=== PATIENT | male | born 1975 | race Caucasian/White ===

== ENCOUNTER → 2016-04-14 | Outpatient (CLI) | payer MEDICAID ==
--- NOTE | 2016-04-14 08:41 | MR ---
EXAMINATION TYPE: MR knee RT wo con DATE OF EXAM: 04/14/2016 8:14 AM COMPARISON: NONE HISTORY: Pain, effusion, and medial meniscal derangements per order. Right knee pain and locking sens ation for 6 to 7 months per patient. TECHNIQUE: Multiplanar, multisequence images of the knee is performed without IV contrast. FINDINGS: MEDIAL MENISCUS: Anterior and posterior horns are intact without tear. LATERAL MENISCUS: Anterior and posterior horns are intact without tear. CRUCIATE LIGAMENTS: The anterior and posterior cruciate ligaments are intact and unremarkable. COLLATERAL LIGAMENTS: The medial collateral ligament and lateral collateral ligament complex are inta ct and unremarkable. EXTENSOR MECHANISM: Visualized quadriceps and patellar tendons are intact. EFFUSION: No significant suprapatellar joint effusion. POPLITEAL CYST: No popliteal/bal cyst. Small cyst probable bursal surface posterior to the distal lateral femoral condyle is noted on sagittal image 19. TRICOMPARTMENT SPACES: Tricompartment joint spaces are fairly well-maintained. There is no significan t spurring identified. CARTILAGE: Tricompartment articular cartilage is maintained. There is no significant chondromalacia p atella present. BONE MARROW SIGNAL: No focal abnormal marrow signal is appreciated. OTHER: No additional significant abnormality is appreciated. IMPRESSION: No meniscal or ligamentous tear is seen. No significant finding is identified to account for patient's symptoms.
== END | disposition home or self-care (01) ==
LOC: RADMRIMAIN 07:39
PROVIDERS: ATTEND Orthopaedic Surgery Sports Medicine
DX: M25.461 Effusion, right knee (principal); M25.561 Pain in right knee; M23.331 Other meniscus derangements, other medial meniscus, right knee

== ENCOUNTER → 2017-07-12 | Outpatient (CLI) | payer MEDICAID ==
--- NOTE | 2017-07-12 09:52 | CT ---
EXAMINATION TYPE: CT sinus wo con DATE OF EXAM: 07/12/2017 COMPARISON: Prior sinus CT May 26, 2008 HISTORY: chronic sinusitis and left-sided facial pain per order. CT DLP: 628 mGycm. Automated Exposure Control for Dose Reduction was Utilized. TECHNIQUE: CT scan of the sinuses is performed without contrast, axial images are obtained, coronal r eformatted images are also reviewed. FINDINGS: There is mild mucosal thickening with few tiny mucous retention cysts or polyps in the infe rior maxillary sinuses bilaterally. There is mild to moderate mucosal thickening involving the sphen oid sinuses bilaterally on current study. There is mild mucosal thickening involving ethmoid sinuses bilaterally. There is nonformed right frontal sinus. No suspicious opacification or air-fluid levels is seen. The surgically treated ostiomeatal complex is patent bilaterally on the coronal images. Nasa l septum remains deviated to left of midline. Visualized portion of mastoid air cells show no abnormal opacification. The globes are intact bilate rally. Visualized portion of brain parenchyma is unremarkable. IMPRESSION: Chronic paranasal sinus disease as detailed above. No acute sinus disease identified curr ently.
== END | disposition home or self-care (01) ==
LOC: RADCTMAIN 08:55
PROVIDERS: ATTEND Otolaryngology
DX: J34.89 Other specified disorders of nose and nasal sinuses (principal); J32.9 Chronic sinusitis, unspecified
CPT/HCPCS: 70486

== ENCOUNTER → 2017-10-11 | Outpatient (CLI) | payer MEDICAID ==
--- NOTE | 2017-10-11 16:53 | CONS ---
CONSULTATION DATE OF SERVICE: 10/11/2017 A 41-year-old gentleman has been evaluated in the sleep center for possible obstructive sleep apnea-hypopnea syndrome. HISTORY OF PRESENT ILLNESS/SLEEP-WAKE EVALUATION: Patient usual sleep schedule from 10 p.m. to 5 a.m. on working days and to 6:00 a.m. on weekends. Usually no problems with falling asleep, although he has TV in bedroom. He sleeps by himself with snoring and grinding teeth, episodes of panic attack, heartburn, and sweating. The patient wakes up from sleep about 5 times with some episodes of nocturia also. No history of hypnagogic hallucinations, sleep paralysis or cataplexy. [place] Sleepiness Scale is 3. PAST MEDICAL HISTORY: Positive for anxiety, acid reflux, back problems. PAST SURGICAL HISTORY: Sinus surgery. Hernia repair surgery. MEDICATIONS: Singular, Motrin, Prilosec, Xanax. SOCIAL HISTORY: Negative for smoking. Alcohol consumption occasional. FAMILY HISTORY: Heart problems, asthma, snoring, acid reflux. REVIEW OF SYSTEMS: Multiple awakenings from sleep. PHYSICAL EXAM: GENERAL A 41-year-old gentleman without distress. VITAL SIGNS BP 128/81, HR 79, RR 16, height 5 feet 8 inches, weight 195.8, BMI 29.6, temperature 98.5, oxygen saturation room air 98%. HEENT PERRLA, EOMI, evaluation of oropharynx showed low position of soft palate. Slight hypertrophy of tonsils. Slight restriction of nasal breathing. Slight asymmetric nose, possible nasal septum deviation. NECK Supple, no JVD. Thyroid is not palpable. LUNGS Clear to percussion and to auscultation. Good air exchange. No wheezing or rhonchi. HEART S1, S2 regular. No murmurs, gallops, or rubs. ABDOMEN Slightly obese, soft and nontender. Bowel sounds are present. No organomegaly appreciated. EXTREMITIES No clubbing or cyanosis. MRI MANAGER Awake, alert, and oriented X3. Cranial nerves 2 to 7 intact. There is no fasciculation or atrophy. noted. No focal deficits observed. IMPRESSION: 1. Snoring, multiple awakenings from sleep, low position of soft palate, obstructive sleep apnea-hypopnea syndrome. 2. Acid reflux. 3. Anxiety. 4. Back problems. 5. Status post sinus surgery. 6. Status post hernia repair surgery. PLAN: 1. Polysomnography for evaluation of patient's breathing during sleep. 2. CPAP/BiPAP titration if sleep study confirms obstructive sleep apnea-hypopnea syndrome. 3. Preferable position during sleep on the side. 4. No driving if patient feels any sleepiness. 5. I will see patient for follow up visit to explain results of testing and following plan. Thank you very much for referring this patient for consultation. Sincerely, Kurt Henry MD, PhD, FAASM Diplomat of [employer] Compounder of [facility] [place] MMODL / IJN: [id number] /
== END | disposition home or self-care (01) ==
LOC: SLEEP 15:23
PROVIDERS: ATTEND Internal Medicine
DX: G47.33 Obstructive sleep apnea (adult) (pediatric) (principal); K21.9 Gastro-esophageal reflux disease without esophagitis; F41.9 Anxiety disorder, unspecified; M54.9 Dorsalgia, unspecified; Z79.1 Long term (current) use of non-steroidal anti-inflammatories (NSAID); Z79.899 Other long term (current) drug therapy; Z98.890 Other specified postprocedural states
CPT/HCPCS: 99211

== ENCOUNTER → 2018-05-16 | Outpatient (CLI) | payer MEDICAID ==
[2018-05-16 16:41] LABS: HCT 47.1 % (39.0-53.0); HGB 16.1 gm/dL (13.0-17.5); MCH 30.8 pg (25.0-35.0); MCHC 34.1 g/dL (31.0-37.0); MCV 90.3 fL (80.0-100.0); Mean Platelet Volume 6.3; Platelet Count 355 k/uL (150-450); RBC 5.22 m/uL (4.30-5.90); RDW 12.1 % (11.5-15.5); WBC 10.4 k/uL (3.8-10.6)
[2018-05-16 23:02] LABS: Thyroid Peroxidase Antibodies 36.8 U/mL (0.0-60.0)
== END | disposition home or self-care (01) ==
LOC: LABWHC1 16:05
PROVIDERS: ATTEND Internal Medicine Endocrinology, Diabetes & Metabolism
DX: R53.83 Other fatigue (principal)
CPT/HCPCS: 36415; 82533; 82607; 84146; 84403; 85027; 86376

== ENCOUNTER → 2020-03-17 | Outpatient (CLI) | payer MEDICAID | END | disposition home or self-care (01) | LOC: LABWHC1 12:09 | PROVIDERS: ATTEND Emergency Medicine | DX: Z20.828 Contact with and (suspected) exposure to other viral communicable diseases (principal) | CPT/HCPCS: U0003; C9803 ==

== ENCOUNTER → 2020-08-04 | Outpatient (CLI) | payer MEDICAID ==
--- NOTE | 2020-08-04 14:53 | XR ---
EXAMINATION TYPE: XR chest 2V DATE OF EXAM: 08/04/2020 COMPARISON: None INDICATION: Chest pain TECHNIQUE: Frontal and lateral views of the chest are obtained. FINDINGS: The heart size is normal. The pulmonary vasculature is normal. The lungs are clear. IMPRESSION: 1. No acute pulmonary process.
== END | disposition home or self-care (01) ==
LOC: RADXRMAIN 14:16
PROVIDERS: ATTEND Physician Assistant Medical
DX: R07.9 Chest pain, unspecified (principal)
CPT/HCPCS: 71046

== ENCOUNTER → 2020-08-20 | Outpatient (CLI) | payer MEDICAID ==
--- NOTE | 2020-08-20 10:01 | ECHOF ---
Referral Reason:R07.9 chest pain MEASUREMENTS -------- HEIGHT: 172.7 cm WEIGHT: 90.7 kg BP: RVIDd: 3.0 cm (< 3.3) IVSd: 1.6 cm (0.6 - 1.1) LVIDd: 3.5 cm (3.9 - 5.3) LVPWd: 1.4 cm (0.6 - 1.1) IVSs: 1.7 cm LVIDs: 2.4 cm LVPWs: 1.7 cm LAESV Index (A-L): 13.74 ml/m Ao Diam: 3.2 cm (2.0 - 3.7) AV Cusp: 2.4 cm (1.5 - 2.6) MV EXCURSION: 13.117 mm (> 18.000) MV EF SLOPE: 80 mm/s (70 - 150) EPSS: 0.7 cm MV E Davis: 0.66 m/s MV DecT: 183 ms MV A Davis: 0.55 m/s MV E/A Ratio: 1.21 RAP: 5.00 mmHg RVSP: 32.30 mmHg FINDINGS -------- Sinus rhythm. This was a technically adequate study. The left ventricular size is normal. There is moderate concentric left ventricular hypertrophy. O verall left ventricular systolic function is normal with, an EF between 55 - 60 %. The diastolic fi lling pattern is normal for the age of the patient 11.44. The right ventricle is normal in size. Normal LA size by volume 22+/-6 ml/m2. The right atrial size is normal. Interatrial and interventricular septum intact. The aortic valve is trileaflet and appears structurally normal. There is no evidence of aortic regu rgitation. There is no evidence of aortic stenosis. There is trace to mild mitral regurgitation. Mild tricuspid regurgitation present. There is no evidence of pulmonary hypertension. The right v entricular systolic pressure, as measured by Doppler, is 32.30mmHg. There is no pulmonic regurgitation present. The aortic root size is normal. Normal inferior vena cava with normal inspiratory collapse consistent with estimated right atrial pre ssure of 5 mmHg. There is no pericardial effusion. CONCLUSIONS -------- 1. The left ventricular size is normal. 2. There is moderate concentric left ventricular hypertrophy. 3. Overall left ventricular systolic function is normal with, an EF between 55 - 60 %. 4. The diastolic filling pattern is normal for the age of the patient 11.44 5. There is trace to mild mitral regurgitation. 6. Mild tricuspid regurgitation present. REGULATORY COMPLIANCE ENGINEER: Viji Kirby RDCS
--- NOTE | 2020-08-20 12:23 | P.STRESS ---
- Stress Test Note Stress Test Results/Findings: Exam Performed: NM stress lexiscan cardiolite Exam Date: 08/20/20 Reason for Exam: CP Height: 5 ft 8 in Weight: 91 kg Protocol: LEXISCAN CARDIOLITE Stage: NA Duration of Exercise: NA Resting Heart Rate: 86 Resting Blood Pressure: 131/95 Maximum Achieved Heart Rate: 120 Maximum Achieved Blood Pressure: 162/99 85% PMHR: 151 100% PMHR: 178 METS: NA Technologist Comment: Stress Test Results/Findings: This is a 44-year-old gentleman with history of COPD being evaluated for symptoms of chest pain. Stress data: Baseline EKG showed sinus rhythm with normal IN and QRS duration. Blood pressure at rest is 05[birth year]/1994 at pulse rate of 86. A standard dose of Lexiscan was infused. EKGs taken during the infusion did not reveal any significant changes from the baseline. Final impression #1. Negative Lexiscan stress test #2. A report on the nuclear images to be given by the radiologist
--- NOTE | 2020-08-20 13:03 | NM ---
EXAMINATION TYPE: NM stress lexiscan cardiolite DATE OF EXAM: 08/20/2020 COMPARISON: Previous 01/17/2012 HISTORY: Chest pain, R07.9 TECHNIQUE: After the intravenous administration of 9.6 mCi Tc 99m Sestamibi - Cardiolite resting SPE CT images acquired 45 minutes post injection. The patient received 0.4mg Lexiscan, 24.8 mCi Tc 99m Sestamibi - Stress images obtained [address] injection FINDINGS: Review of stress and rest SPECT images demonstrates no distinct perfusion abnormality. Gated analysi s shows normal wall motion with an estimated left ventricular ejection fraction of 59 %. IMPRESSION: No scintigraphic evidence for reversible ischemia. Stable exam, normal change.
== END | disposition home or self-care (01) ==
LOC: RADNMMAIN 08:14
PROVIDERS: ATTEND Family Medicine
DX: I08.1 Rheumatic disorders of both mitral and tricuspid valves (principal); R07.9 Chest pain, unspecified
CPT/HCPCS: 93017; 93306; 78452; A9500

== ENCOUNTER → 2022-01-04 | Outpatient (CLI) | payer MEDICAID ==
--- NOTE | 2022-01-04 09:02 | CT ---
EXAMINATION TYPE: CT soft tissue neck w con CT DLP: 690 mGycm, Automated exposure control for dose reduction was used. DATE OF EXAM: 01/04/2022 8:22 AM COMPARISON: None. CLINICAL INDICATION:Male, 46 years old with history of R22.1 LOCALIZED SWELLING, MASS AND LUMP, NECK; PHH, Swelling on left side near tonsils TECHNIQUE: Standard enhanced CT of the neck following intravenous administration of 66 cc of Isovue 3 00. Axial sections with coronal and sagittal reformats were obtained. FINDINGS: Brain: Visualized portions are grossly unremarkable. Orbits: Unremarkable Sinuses: Mild mucosal thickening of the bilateral maxillary sinuses. Suprahyoid Neck: The oropharynx, oral cavity and retropharyngeal spaces are clear and symmetric. The nasopharynx is unremarkable. Minimal asymmetric prominence of the left palatine tonsil compared to th e right. The surrounding parapharyngeal fat is clear. No fluid collection identified. Infrahyoid Neck: The larynx, hypopharynx, and supraglottic area are clear and symmetric. Parotid Glands: Unremarkable. Submandibular Glands: Unremarkable. Musculoskeletal: No acute osseous pathology. Lymph nodes: Multiple nonenlarged lymph nodes are seen along both anterior chains of the neck. Vascular structures: Visualized major arteries are patent without evidence of aneurysm. Thoracic Inlet/airway: Airway is patent. The lung apices are clear. Soft tissues/Thyroid: Thyroid and remainder of the soft tissues are unremarkable. Other: none. IMPRESSION Minimal asymmetric prominence of the left palatine tonsil compared to the right without surrounding i nflammatory changes. No concerning lymphadenopathy. Direct visualization is recommended.
== END | disposition home or self-care (01) ==
LOC: RADCTMAIN 07:33
PROVIDERS: ATTEND Otolaryngology
DX: R22.1 Localized swelling, mass and lump, neck (principal)
CPT/HCPCS: 70491; Q9967

== ENCOUNTER → 2022-01-26 | Outpatient (CLI) | payer MEDICAID ==
[2022-01-26 16:06] LABS: Basophils # (A) 0.09 X 10*3/uL (0.00-0.10); Basophils % (A) 1.5 %; Eosinophils # (A) 0.11 X 10*3/uL (0.04-0.35); Eosinophils % (A) 1.8 %; HCT 47.8 % (39.6-50.0); HGB 16.5 g/dL (13.0-17.0); Immature Grans, Automated 0.5 %; Lymphocytes # (A) 1.87 X 10*3/uL (0.90-5.00); Lymphocytes % (A) 30.5 %; MCH 30.7 pg (27.0-32.0); MCHC 34.5 g/dL (32.0-37.0); Mean Platelet Volume 10.1 fL (9.5-12.2); Monocytes # (A) 0.62 X 10*3/uL (0.20-1.00); Monocytes % (A) 10.1 %; NRBC Per 100 WBC 0 /100 WBCS (0.0-0.0); Neutrophils # (A) 3.41 X 10*3/uL (1.80-7.70); Neutrophils % (A) 55.6 %; Platelet Count 338 X 10*3/uL (140-440); RBC 5.37 X 10*6/uL (4.40-5.60); RDW 11.9 % (11.5-14.5); WBC 6.13 X 10*3/uL (4.50-10.00)
[2022-01-26 16:16] LABS: T4, Free (Free Thyroxine) 1.21 ng/dL (0.800-1.800)
== END | disposition home or self-care (01) ==
LOC: LABWHC1 09:25
PROVIDERS: ATTEND Otolaryngology
DX: R53.83 Other fatigue (principal)
CPT/HCPCS: 36415; 84439; 84443; 85025

== ENCOUNTER → 2022-11-30 | Outpatient (CLI) | payer MEDICAID ==
[2022-11-30 12:25] LABS: HCT 47.2 % (39.6-50.0); HGB 15.9 d/dL (13.0-17.0); MCH 29.9 pg (27.0-32.0); MCHC 33.7 d/dL (32.0-37.0); MCV 88.9 FL (80.0-97.0); Mean Platelet Volume 10.6 FL (9.5-12.2); NRBC Per 100 WBC 0 X 10*3/uL (0.00-0.01); Platelet Count 322 X 10*3/uL (140-440); RBC 5.31 X 10*6/uL (4.40-5.60); WBC 6.39 X 10*3/uL (4.50-10.00)
[2022-11-30 13:20] LABS: ALT 31 U/L (10-49); AST 18 U/L (14-35); Albumin 4.5 d/dL (3.8-4.9); Alkaline Phosphatase 84 U/L (41-126); BUN/Creat Ratio 11.73 Ratio (12.00-20.00); Blood Urea Nitrogen 12.9 mg/dL (9.0-27.0); Calcium 9.4 mg/dL (8.7-10.3); Carbon Dioxide 23.5 mmol/L (21.6-31.8); Chloride 107 mmol/L (96-109); Chol/HDL Ratio 5.76 Ratio; Globulin 2.5 d/dL (1.6-3.3); Glucose 109 mg/dL (70-110); Potassium 4.1 mmol/L (3.5-5.5); Sodium 142 mmol/L (135-145); Total Bilirubin 0.2 mg/dL (0.3-1.2)
== END | disposition home or self-care (01) ==
LOC: LABWHC1 07:32
PROVIDERS: ATTEND Family Medicine
DX: Z00.00 Encounter for general adult medical examination without abnormal findings (principal)
CPT/HCPCS: 36415; 80053; 80061; 83036; 84443; 85027

== ENCOUNTER → 2023-04-25 | Outpatient (CLI) | payer MEDICAID ==
--- NOTE | 2023-04-29 06:15 | MR ---
EXAMINATION TYPE: MR shoulder LT wo con DATE OF EXAM: 04/25/2023 COMPARISON: Outside left shoulder x-ray April 25, 2023 HISTORY: Left shoulder pain with difficulty raising arm x3 months TECHNIQUE: Multiplanar, multisequence imaging of the left shoulder is performed without contrast. FINDINGS: Rotator Cuff: Increased signal in the infraspinatus and to greater degree the supraspinatus tendon. S ubscapularis tendon intact. Rotator cuff muscle bulk preserved. Acromioclavicular Joint: Mild to moderate narrowing greatest along posterior aspect. No significant s purring. Glenohumeral Joint: No significant spurring. Small to tiny joint effusion. Labrum: The labrum appears grossly intact given limitation of non-arthrogram study. Biceps Tendon: The long head of biceps is in normal location within bicipital groove. Bone marrow signal: No focal abnormal marrow signal is appreciated. Other: No additional significant abnormality is appreciated. IMPRESSION: Some tendinosis of the infraspinatus and supraspinatus tendons. No significant rotator cu ff or labral tear seen.
== END | disposition home or self-care (01) ==
LOC: RADMRIMAIN 21:45
PROVIDERS: ATTEND Orthopaedic Surgery
DX: M67.814 Other specified disorders of tendon, left shoulder (principal)

== ENCOUNTER → 2024-01-11 | Outpatient (CLI) | payer MEDICAID ==
[2024-01-11 21:29] LABS: Alternaria alternata IgE <0.10 kU/L; Aspergillus fumagatus IgE <0.10 kU/L; Birch IgE <0.10 kU/L; Cat Epith & Dander IgE <0.10 kU/L; Cladosporian herbarum IgE <0.10 kU/L; Cockroach IgE <0.10 kU/L; Dermato. farinae IgE <0.10 kU/L; Dog Dander IgE <0.10 kU/L; Elm IgE <0.10 kU/L; Maple (Box Elder) IgE <0.10 kU/L; Oak IgE <0.10 kU/L; Ragweed,Common IgE <0.10 kU/L; Red Top (Bentgrass) IgE <0.10 kU/L
== END | disposition home or self-care (01) ==
LOC: LABWHC1 15:45
PROVIDERS: ATTEND Internal Medicine Critical Care Medicine
CPT/HCPCS: 36415; 82785; 85008; 86003

== ENCOUNTER → 2024-03-04 | Outpatient (CLI) | payer MEDICAID ==
--- NOTE | 2024-03-04 19:43 | CT ---
EXAMINATION TYPE: CT angio head neck DATE OF EXAM: 03/04/2024 5:46 PM COMPARISON: . CLINICAL INDICATION: Male, 48 years old with history of Z12.9 ENC FOR SCR FOR MALIGNANT NEOPLASM, lef t side selling and ear pain TECHNIQUE: Axially acquired helical CT angiogram of the head and neck was obtained with contrast. Axi al images are supplemented with 3D reconstructions and MIP images which were post-processed at an in dependent workstation. NASCET criteria used. Contrast used:100ml mL of Isovue 370 with IV Contrast, Oral contrast used: None. CT DLP: 522.7 mGycm, Automated exposure control for dose reduction was used. FINDINGS: CTA HEAD: No evidence of acute intracranial hemorrhage, mass effect, or midline shift. The ventricles, sulci, a nd cisterns are unremarkable. Vertebral arteries: The vertebral arteries are patent. Vertebral artery dominance: Codominant Basilar artery: The basilar artery is intact. The basilar artery bifurcation is normal. Internal Carotid arteries: The cervical, petrous, cavernous and supraclinoid segments are normal. LICHA: Patent with no evidence of aneurysm. ACOM: Present without evidence of aneurysm. MCA: Patent with no evidence of aneurysm. CHEESE PANCAKE ROLLER: Patent with no evidence of aneurysm. PCOM: Hypoplastic bilaterally. Dural sinuses: Patent. CTA NECK: Right Carotid System: The common carotid artery and external carotid artery are patent. The carotid bifurcation demonstrate s no evidence of hemodynamically significant stenosis. The remaining portions of the internal carotid artery demonstrate normal size without significant narrowing. Left Carotid System: The common carotid artery and external carotid artery are patent. The carotid bifurcation demonstrate s no evidence of hemodynamically significant stenosis. The remaining portions of the internal carotid artery demonstrate normal size without significant narrowing. Vertebral arteries are patent without evidence hemodynamically significant stenosis. There is a three-vessel aortic arch. The origins of the great vessels are patent. No evidence of hemo dynamically significant stenosis. No enlarged lymph nodes in the left neck. No organizing fluid collection or mass identified. The paro tid glands are relatively symmetric. The remainder of the soft tissues are relatively symmetric. IMPRESSION: 1. No finding to correlate with patient's symptoms. A facial soft tissues are relatively symmetric. No organizing fluid collection or mass. No lymphadenopathy. 2. No evidence of dissection of the cervical internal carotid arteries or vertebral arteries. 3. No any evidence of significant stenosis at the carotid bifurcations. 4. No evidence of intracranial high-grade stenosis or intracranial aneurysm. [facility], , 03/04/2024 7:40 PM
== END | disposition home or self-care (01) ==
LOC: RADCTMAIN 03-01 10:58
PROVIDERS: ATTEND Family Medicine
DX: Z12.9 Encounter for screening for malignant neoplasm, site unspecified (principal)
CPT/HCPCS: 70496; 70498; Q9967

== ENCOUNTER → 2024-03-15 | Outpatient (CLI) | payer MEDICAID ==
--- NOTE | 2024-03-15 16:52 | CT ---
EXAMINATION TYPE: CT sinus wo con DATE OF EXAM: 03/15/2024 4:45 PM COMPARISON: 07/12/2017. CLINICAL INDICATION: Male, 48 years old with history of J36 PERITONSILLAR ABSCESS K11.20 SIALOADENITI S; , Acute maxillary sinusitis. TECHNIQUE: Multiple thin axial images were obtained through the paranasal sinuses without the use of IV contrast. Additional coronal and sagittal reformatted images were submitted for evaluation. Contrast used: none Oral contrast used: none CT DLP: 388 mGycm, Automated exposure control for dose reduction was used. FINDINGS: Frontal sinuses: Hypoplastic left frontal sinus and aplastic right frontal sinus.. Frontal Recess: Cl ear Maxillary Sinuses: Mild mucosal thickening bilaterally. The ostiomeatal units are felt to have postsu rgical change. Maxillary Infundibula([facility]): Clear, No Benjamin cells identified. Ethmoid sinuses: Normally developed with mild mucosal thickening. Ethmoidal notch: Protected and abut ting the lateral lamina. Sphenoid sinuses: Normally developed with mild mucosal thickening. There is sellar sphenoid sinus pne umatization without evidence of dehiscence. No dehiscence of carotid canal. No evidence of optic ner ve dehiscence within the sphenoid sinus. No evidence of Onodi cells. Sphenoethmoidal recesses: Clear . Nasal septum: Slightly deviated leftward on the anterior superior portion. Polyp-like lesion just ant erior to the right middle turbinate Nasal Turbinates: Within normal limits. Mastoid air cells & middle ears: The air cells are clear. The middle ears are grossly unremarkable. Modified Soft tissues & Brain: Partially seen without gross abnormality. Globes are intact. Other: Cribriform plate demonstrates symmetric cribriform plate. No evidence of bony dehiscence of skull ba se. Lamina papyracea is intact without evidence of remote orbital fracture or orbital prolapse into the e thmoid sinus. IMPRESSION: 1. Mild paranasal sinus disease. 2. The ostiomeatal units have postsurgical morphology and are patent, the frontonasal and sphenoethmo idal recesses are clear. 3. Polyp-like lesion just anterior to the right middle turbinate [facility], , 03/15/2024 4:49 PM
--- NOTE | 2024-03-15 17:09 | CT ---
EXAMINATION TYPE: CT soft tissue neck w con DATE OF EXAM: 03/15/2024 4:54 PM COMPARISON: Same day CT sinuses. CLINICAL INDICATION: Male, 48 years old with history of J36 PERITONSILLAR ABSCESS K11.20 SIALOADENITI S; PHH, Peritonsillar abscess. Sialoadenitis. TECHNIQUE: Standard enhanced CT of the neck. Axial sections with coronal and sagittal reformats were obtained. Contrast used:100 ml mL of Isovue 300 with IV Contrast, (None if empty) Oral contrast used: (None if empty) CT DLP: 803 mGycm, Automated exposure control for dose reduction was used. FINDINGS: Brain: Visualized portions are grossly unremarkable. Orbits: Unremarkable Sinuses: Mild paranasal sinus disease. Spaces of the neck: Clear and symmetric. No organizing fluid collection. Mild enlargement of the osage leona tonsils. The submandibular parotid glands appear within normal limits. Musculoskeletal: No acute osseous pathology. Lymph nodes: Multiple nonenlarged lymph nodes are seen along both anterior chains of the neck. Vascular structures: Visualized major arteries are patent without evidence of aneurysm. Thoracic Inlet/airway: Airway is patent. The lung apices are clear. Soft tissues/Thyroid: Thyroid and remainder of the soft tissues are unremarkable. Other: none. IMPRESSION: 1. No evidence for peritonsillar abscess, no lymphadenopathy. 2. No CT evidence for sialoadenitis. [facility], , 03/15/2024 5:07 PM
== END | disposition home or self-care (01) ==
LOC: RADCTMAIN 16:00
PROVIDERS: ATTEND Family Medicine
DX: J36 Peritonsillar abscess (principal); J34.89 Other specified disorders of nose and nasal sinuses; K11.20 Sialoadenitis, unspecified; J35.1 Hypertrophy of tonsils; R51.9 Headache, unspecified; J01.00 Acute maxillary sinusitis, unspecified
CPT/HCPCS: 70491; 70486; Q9967

== ENCOUNTER → 2024-08-21 | Outpatient (CLI) | payer MEDICAID ==
[2024-08-22 01:51] LABS: HCT 49.6 % (39.6-50.0); HGB 16.7 g/dL (13.0-17.0); MCH 29.9 pg (27.0-32.0); MCHC 33.7 g/dL (32.0-37.0); MCV 88.7 FL (80.0-97.0); Mean Platelet Volume 10.8 FL (9.5-12.2); NRBC Per 100 WBC 0 X 10*3/uL (0.00-0.01); Platelet Count 360 X 10*3/uL (140-440); RBC 5.59 X 10*6/uL (4.40-5.60); RDW 12.5 % (11.5-14.5); WBC 8.79 X 10*3/uL (4.50-10.00)
[2024-08-22 02:20] LABS: Chol/HDL Ratio 4.74 Ratio
[2024-08-22 02:21] LABS: ALT 36 U/L (10-49); AST 25 U/L (14-35); Albumin 4.5 g/dL (3.8-4.9); Albumin/Globulin Ratio 1.73 Ratio (1.60-3.17); Alkaline Phosphatase 77 U/L (41-126); BUN/Creat Ratio 9.27 Ratio (12.00-20.00); Blood Urea Nitrogen 10.2 mg/dL (9.0-27.0); Calcium 9.6 mg/dL (8.7-10.3); Carbon Dioxide 23.3 mmol/L (21.6-31.8); Chloride 101 mmol/L (96-109); Globulin 2.6 g/dL (1.6-3.3); Glucose 83 mg/dL (70-110); LDL Cholesterol,Calculated 128.7 mg/dL (0.0-131.0); Potassium 4.2 mmol/L (3.5-5.5); Sodium 138 mmol/L (135-145); Total Bilirubin 0.7 mg/dL (0.3-1.2); Total Protein 7.1 g/dL (6.2-8.2)
== END | disposition home or self-care (01) ==
LOC: LABWHC1 16:01
PROVIDERS: ATTEND Family Medicine
DX: Z13.220 Encounter for screening for lipoid disorders (principal); E78.5 Hyperlipidemia, unspecified; R53.83 Other fatigue; R73.02 Impaired glucose tolerance (oral)
CPT/HCPCS: 36415; 80053; 80061; 83036; 84443; 85027